=== PATIENT | female | born 1985 | race American Indian/Alaskan Native ===

== ENCOUNTER 2022-02-23 23:55 | Emergency (ER) | payer OTHER ==
[2022-02-24 02:38] VITALS: BP 136/85
--- NOTE | 2022-02-24 03:29 | XRay Report ---
LEFT TIBIA AND FIBULA 2 VIEWS INDICATION / CLINICAL INFORMATION: INJURY. COMPARISON: None available. FINDINGS: BONES / JOINT(S): No acute fracture or subluxation. No significant arthritis. SOFT TISSUES: No significant abnormality. ADDITIONAL FINDINGS: None. IMPRESSION: 1. No acute findings. Signer Name: Markel Rosario MD Signed: 02/24/2022 3:25 AM Workstation Name: [email or web address]
--- NOTE | 2022-02-24 04:12 | Emergency Department Report ---
ED Lower Extremity HPI - General Chief Complaint: Extremity Injury, Lower Stated Complaint: LF ELG PAIN S/P FALL Time Seen by Provider: 02/24/22 04:10 Source: patient, EMS Mode of arrival: Ambulatory Limitations: No Limitations - History of Present Illness Initial Comments: Patient 36-year-old female who presents for left medial knee and tib-fib pain. Patient states she slipped and hyperextended her left lower leg. Describes pain as 4/10 aching soreness for the past day. Patient remains amatory with minimal limp. No abrasion laceration or bleeding. There is no swelling noted on exam. Patient drove self to ED tonight patient appears nontoxic. Pain is relieved by rest and offloading. Pain is exacerbated by weightbearing. MD Complaint: leg injury - Related Data Previous Rx's Medication Instructions Recorded Last Taken Type Menthol/Camphor [[place] 1 applicatio TP QID PRN #1 tube 02/24/22 Unknown Rx Ointment] Naproxen 500 mg PO BID PRN #30 tab 02/24/22 Unknown Rx Allergies Allergy/AdvReac Type Severity Reaction Status Date / Time No Known Allergies Allergy Verified 02/24/22 02:41 ED Review of Systems ROS: Stated complaint: LF ELG PAIN S/P FALL Other details as noted in HPI Constitutional: denies: chills, fever Eyes: denies: eye pain, eye discharge, vision change ENT: denies: ear pain, throat pain Respiratory: denies: cough, shortness of breath, wheezing Cardiovascular: denies: chest pain, palpitations Endocrine: no symptoms reported Gastrointestinal: as per HPI Genitourinary: denies: urgency, dysuria, discharge Musculoskeletal: other (Left lower leg pain) Skin: denies: rash, lesions Neurological: denies: headache, weakness, paresthesias, vertigo Psychiatric: denies: anxiety, depression Hematological/Lymphatic: denies: easy bleeding, easy bruising ED Past Medical Hx - Medications Home Medications: Home Medications Medication Instructions Recorded Confirmed Last Taken Type Menthol/Camphor [[place] 1 applicatio TP QID PRN #1 tube 02/24/22 Unknown Rx Ointment] Naproxen 500 mg PO BID PRN #30 tab 02/24/22 Unknown Rx ED Physical Exam - General Limitations: No Limitations General appearance: alert, in no apparent distress - Head Head exam: Present: normocephalic, normal inspection - Eye Eye exam: Present: normal appearance, PERRL, EOMI Pupils: Present: normal accommodation - ENT ENT exam: Present: mucous membranes moist - Neck Neck exam: Present: normal inspection, full ROM - Respiratory Respiratory exam: Present: normal lung sounds bilaterally. Absent: wheezes, stridor - Cardiovascular Cardiovascular Exam: Present: regular rate, normal rhythm, normal heart sounds. Absent: systolic murmur, diastolic murmur, rubs, gallop - GI/Abdominal GI/Abdominal exam: Present: soft, normal bowel sounds. Absent: distended, tenderness - Rectal Rectal exam: Present: deferred - Extremities Exam Extremities exam: Present: full ROM, normal capillary refill - Expanded Lower Extremity Exam Left Knee exam: Present: full ROM, tenderness (Left medial knee at proximal tib-fib there is no deformity no crepitus no step-off no anterior drawer), pain w/ pronation/supination. Absent: swelling, abrasion, laceration, ecchymosis, deformity, crepidus, erythema, effusion, posterior draw sign Lower Leg exam: Present: full ROM, tenderness (Proximal tib-fib medial there is no ecchymosis no step-off no bruising no deformity). Absent: swelling, abrasion, laceration, ecchymosis, deformity, crepidus, dislocation, palpable cord, Eliane's sign Ankle exam: Present: full ROM. Absent: tenderness Foot/Toe exam: Present: full ROM, tenderness. Absent: swelling Neuro vascular tendon exam: Absent: pulse deficit, motor deficit, sensory deficit, tendon deficit Gait: Positive: observed and limited by pain - Back Exam Back exam: Present: normal inspection, full ROM. Absent: paraspinal tenderness, vertebral tenderness - Neurological Exam Neurological exam: Present: alert, oriented X3, CN II-XII intact, reflexes normal. Absent: motor sensory deficit - Expanded Neurological Exam Expanded Patient oriented to: Present: person, place, time Speech: Present: fluid speech Motor strength exam: RLE: 5, LLE: 5 DTR: knee (R): 1+, knee (L): 1+, ankle (R): 1+, ankle (L): 1+ Best Eye Response ([place]): (4) open spontaneously Best Motor Response ([place]): (6) obeys commands Best Verbal Response ([place]): (5) oriented [place] Total: 15 - Psychiatric Psychiatric exam: Present: normal affect, normal mood - Skin Skin exam: Present: warm, dry, intact, normal color. Absent: rash ED Course Vital Signs 02/24/22 02:31 Temperature 98.0 F Pulse Rate 86 Respiratory 18 Rate Blood Pressure 136/85 O2 Sat by Pulse 100 Oximetry ED Lower Extremity MDM - Radiology Data Radiology results: report reviewed, image reviewed LEFT TIBIA AND FIBULA 2 VIEWS INDICATION / CLINICAL INFORMATION: INJURY. COMPARISON: None available. FINDINGS: BONES / JOINT(S): No acute fracture or subluxation. No significant arthritis. SOFT TISSUES: No significant abnormality. ADDITIONAL FINDINGS: None. IMPRESSION: 1. No acute findings. Signer Name: Markel Rosario MD Signed: 02/24/2022 3:25 AM Workstation Name: [id number] Transcribed By: SAMIRA Dictated By: Markel Rosario MD Electronically Authenticated By: Markel Rosario MD Signed Date/Time: 02/24/22324 DD/ 3 TD/TT: - Medical Decision Making X-rays negative for fracture subluxation or dislocation range of motion is intact and unrestricted. There is no step-off no crepitus no deformity. Full knee extension is maintained distal pulses are intact. There is no catch pop click or drawer. Plan NSAIDs as needed pain, knee exercises, patient denies crutches, patient will follow up with primary care doctor in 2 to 3 days. Patient verbalized agreement and understanding with discharge plan. Patient DC'd home in stable condition at this time. Critical care attestation.: If time is entered above; I have spent that time in minutes in the direct care of this critically ill patient, excluding procedure time. ED Disposition Clinical Impression: Musculoskeletal pain of left lower extremity Disposition: HOME / SELF CARE / HOMELESS Is pt being admited?: No Does the pt Need Aspirin: No Condition: Stable Instructions: Acute Knee Pain, Adult Additional Instructions: Take all medications as prescribed, rice therapy as directed. Knee exercises as directed. Follow-up with your doctor in 2 to 3 days. Return to emergency department should symptoms worsen. Prescriptions: Naproxen 500 mg PO BID PRN #30 tab PRN Reason: pain Menthol/Camphor [[place] Ointment] 1 applicatio TP QID PRN #1 tube PRN Reason: pain Referrals: JANET OVIEDO MD [Staff Physician] - 3-5 Days Forms: Work/School Release Form(ED) Time of Disposition: 04:22
== END 2022-02-24 04:35 | disposition home or self-care (01) ==
LOC: ED 23:55
DX: M25.562 Pain in left knee (principal)
CPT/HCPCS: 99283